=== PATIENT | male | born 1965 | race African-American/Black ===

== ENCOUNTER 2018-12-04 14:10 | Emergency (ER) | payer OTHER ==
[~2018-12-04] VITALS: Ht 175.3 cm; Wt 94.8 kg
[2018-12-04 14:22] VITALS: BP 164/90
--- NOTE | 2018-12-04 14:41 | RAD ---
Three-view right hand study Clinical indications: Fell onto hand. Fifth digit swelling and pain dislocation. FINDINGS: There is anterior subluxation of the fifth middle phalanx with respect to the fifth proximal phalanx. No acute fracture is evident. No lytic process is evident. IMPRESSION: Subluxation of the fifth PIP joint. Electronically signed by: Ulysses Murrieta MD (12/04/2018 2:38 PM) [id number]
--- NOTE | 2018-12-04 15:38 | RAD ---
Three-view right hand study 3:18 PM Clinical indications: Post reduction. COMPARISON: Earlier same day 2:26 PM. FINDINGS/ IMPRESSION: The previously seen subluxation of the PIP joint of the fifth digit has been reduced. No acute fracture is seen. Electronically signed by: Ulysses Murrieta MD (12/04/2018 3:35 PM) [facility]
--- NOTE | 2018-12-04 15:48 | PHYS DOC ---
Past History Past Medical History: No Pertinent History Past Surgical History: No Surgical History Alcohol Use: None Drug Use: None Adult General Chief Complaint Chief Complaint: HAND PROBLEM HPI HPI Patient is a 52-year-old male with a finger probably has a pinky finger injury he fell backwards on his last night the clinic doctor at the [facility] try to put it back in but could not do so with some pain medication. Review of Systems Review of Systems Constitutional: Denies fever or chills [] Eyes: Denies change in visual acuity, redness, or eye pain [] Neurologic: Denies headache, focal weakness or sensory changes [] Endocrine: Denies polyuria or polydipsia [] All other systems were reviewed and found to be within normal limits, except as documented in this note. Allergies Allergies Allergies Coded Allergies Type Severity Reaction Last Updated Verified sulfamethoxazole Allergy Unknown 12/04/18 Yes trimethoprim Allergy Unknown 12/04/18 Yes Physical Exam Physical Exam Constitutional: Well developed, well nourished, no acute distress, non-toxic appearance. [] HENT: Normocephalic, atraumatic, bilateral external ears normal, oropharynx moist, no oral exudates, nose normal. [] Eyes: PERRLA, EOMI, conjunctiva normal, no discharge. [] Neck: Normal range of motion, no tenderness, supple, no stridor. [] Back: No tenderness, no CVA tenderness. [] Extremities: Right fifth finger there is mild deformity there is some ecchymosis tenderness to palpation range of motion is slightly limited there is no tenderness at the wrist or anywhere above. Neurologic: Alert and oriented X 3, normal motor function, normal sensory function, no focal deficits noted. [] Psychologic: Affect normal, judgement normal, mood normal. [] Current Patient Data Vital Signs Vital Signs Date Time Temp Pulse Resp B/P (MAP) Pulse Ox O2 Delivery O2 Flow Rate FiO2 12/04/18 14:22 99.7 65 16 97 Room Air EKG EKG [] Radiology/Procedures Radiology/Procedures [] Impressions: FINDINGS/ IMPRESSION: The previously seen subluxation of the PIP joint of the fifth digit has been reduced. No acute fracture is seen. Electronically signed by: Froy Murrieta MD (12/04/2018 3:35 PM) [place] [id number] DICTATED AND SIGNED BY: FROY MURRIETA MD DATE: 12/04/18 1535 CC: ZEUS BRAY MD; PCP,UNKNOWN ~ Course & Med Decision Making Course & Med Decision Making Pertinent Labs and Imaging studies reviewed. (See chart for details) []Procedure note: Verbal consent obtained digital block lidocaine 2% total for mL used for anesthesia successful anesthesia was achieved. Right fifth pinky finger manual traction usual technique successful reduction of PIP subluxation splint was applied I applied it there was good positioning patient was ne urovascularly intact after the procedure and voiced understanding of the care plan x-ray confirmed reduction. mperature (Fahrenheit): * 99.7 degrees F (97.6-99.5) H Patient Temperature * 99.7 degrees F (97.5-99.5) H Temperature Source * Oral Blood Pressure Systolic * 164 mm Hg (100-140) H Blood Pressure Diastolic * 90 mm Hg (60-100) Blood Pressure Mean * 114 mm Hg Blood Pressure Location * Right Arm Blood Pressure Source * Automatic Cuff Pulse Rate * 65 beats per minute (60-90) Pulse Assessment Method * NIBP Respiratory Rate * 16 breaths per minute (12-24) Oxygen Delivery Method * Room Air Bedside Pulse Oximetry * 97 % Treatment Prior to Arrival * No Complaint of Pain * Yes Pain Scale Type * Numeric Pain Assessment Label Dragon Disclaimer Dragon Disclaimer This electronic medical record was generated, in whole or in part, using a voice recognition dictation system. Departure Departure: Impression: Primary Impression: Subluxation of finger Disposition: 01 HOME, SELF-CARE Condition: IMPROVED Referrals: JANNETH SEWELL MD Patient Instructions: Finger Dislocation, [id number] ZEUS BRAY MD Dec 04, 2018 15:48
== END 2018-12-04 15:30 | disposition home or self-care (01) ==
LOC: EEVIPCON 14:10 → ER 14:15
DX: S63.236A Subluxation of proximal interphalangeal joint of right little finger, initial encounter (principal); Z88.1 Allergy status to other antibiotic agents; Z88.2 Allergy status to sulfonamides; W18.39XA Other fall on same level, initial encounter; Y93.89 Activity, other specified; Y92.89 Other specified places as the place of occurrence of the external cause; Y99.8 Other external cause status
CPT/HCPCS: 26770; 73130; 99284